=== PATIENT | male | born 1990 | race Caucasian/White ===

== ENCOUNTER 2017-07-25 19:37 | Emergency (ER) | payer MEDICARE ==
[~2017-07-25] VITALS: Ht 182.9 cm; Wt 87.5 kg
[2017-07-25 21:26] VITALS: BP 136/89
== END 2017-07-25 21:28 | disposition home or self-care (01) ==
LOC: FSED 19:37
DX: R50.9 Fever, unspecified (principal); R05 Cough; R03.0 Elevated blood-pressure reading, without diagnosis of hypertension
CPT/HCPCS: 83518; 87400; 99282